=== PATIENT | female | born 1985 | race Caucasian/White ===

== ENCOUNTER 2017-05-14 08:41 | Emergency (ER) | payer OTHER ==
[~2017-05-14] VITALS: Ht 167.6 cm; Wt 97.1 kg
[2017-05-14 08:43] VITALS: BP 111/72
--- NOTE | 2017-05-14 08:48 | NUR ---
Patient ambulated to bed 11. RN evaluating patient at bedside.
--- NOTE | 2017-05-14 08:50 | NUR ---
32/F BIB FAMILY FOR MEDICATION REFILL, INSULIN. HX DM, 22 WEEKS .PT STATED SHE CHECKED BS THIS AM AT HOME = 246 MG/DL. DENIES N/V/D; SKIN IS PINK/WARM/DRY; AAOX4 WITH EVEN AND STEADY GAIT; LUNGS CLEAR BL; HR EVEN AND REGULAR; PT DENIES ANY FEVER, CP, SOB, OR COUGH AT THIS TIME; PATIENT STATES PAIN OF 0/10 AT THIS TIME; VSS; PATIENT POSITIONED FOR COMFORT; HOB ELEVATED; BEDRAILS UP X2; BED DOWN. ER MD MADE AWARE OF PT STATUS.
--- NOTE | 2017-05-14 08:52 | NUR ---
Patient being evaluated byDR GONCALVES at bedside.
[2017-05-14 09:02] VITALS: BP 119/78
--- NOTE | 2017-05-14 09:02 | NUR ---
Patient discharged with v/s stable. Written and verbal after care instructions given and explained. Patient alert, oriented and verbalized understanding of instructions. Ambulatory with steady gait. All questions addressed prior to discharge. ID band removed. Patient advised to follow up with PMD. Rx of HUMULIN R given. Patient educated on indication of medication including possible reaction and side effects. Opportunity to ask questions provided and answered.
== END 2017-05-14 09:02 | disposition home or self-care (01) ==
LOC: MED 08:41
DX: Z76.0 Encounter for issue of repeat prescription (principal); O24.912 Unspecified diabetes mellitus in pregnancy, second trimester; Z3A.22 22 weeks gestation of pregnancy
CPT/HCPCS: 99282

== ENCOUNTER 2017-07-30 07:16 | Emergency (ER) | payer OTHER ==
[~2017-07-30] VITALS: Ht 170.2 cm; Wt 98.4 kg
[2017-07-30 07:22] VITALS: BP 107/70
--- NOTE | 2017-07-30 07:31 | NUR ---
PATIENT PRESENTS TO ED FOR MEDICATION REFILL FOR INSULIN, 31 WEEKS,LMP 6.19 ;DENIES N/V/D; SKIN IS PINK/WARM/DRY; AAOX4 WITH EVEN AND STEADY GAIT; LUNGS CLEAR BL; HR EVEN AND REGULAR; PT DENIES ANY FEVER, CP, SOB, OR COUGH AT THIS TIME; PATIENT STATES PAIN OF 0/10 AT THIS TIME; VSS; PATIENT POSITIONED FOR COMFORT; HOB ELEVATED; BEDRAILS UP X2; BED DOWN. ER MD MADE AWARE OF PT STATUS.
--- NOTE | 2017-07-30 07:31 | NUR ---
PT AMBULATED TO BED 3
--- NOTE | 2017-07-30 07:32 | NUR ---
DR KEVIN EVALUATING PT.
[2017-07-30] MEDS ORDERED: INSULIN HUMAN REGULAR 100 UNITS/ML 10 ML VIAL SUBQ ONE (07:35)
[2017-07-30] MEDS ORDERED: INSULIN NPH HUMAN ISOPHANE 100 UNIT/ML VIAL SUBQ ONE (07:35)
--- NOTE | 2017-07-30 07:42 | NUR ---
FHT 136
[2017-07-30 08:13] VITALS: BP 127/72
== END 2017-07-30 08:12 | disposition home or self-care (01) ==
LOC: MED 07:16
DX: Z76.0 Encounter for issue of repeat prescription (principal); O24.313 Unspecified pre-existing diabetes mellitus in pregnancy, third trimester; E11.9 Type 2 diabetes mellitus without complications; Z3A.31 31 weeks gestation of pregnancy; Z79.4 Long term (current) use of insulin
CPT/HCPCS: 82948; 96372; 99283; J1815

== ENCOUNTER 2018-06-21 17:51 | Emergency (ER) | payer OTHER ==
[~2018-06-21] VITALS: Ht 172.7 cm; Wt 93.9 kg
[2018-06-21 17:55] VITALS: BP 120/81
--- NOTE | 2018-06-21 18:00 | NUR ---
PT AMBULATES BACK TO THE LOBBY WITH HER
--- NOTE | 2018-06-21 19:37 | NUR ---
PT AMBULATED TO BED 7
--- NOTE | 2018-06-21 19:54 | NUR ---
PT PRESENTS TO ED WITH C/O RASHES TO BILATERAL ARMS AND LEGS AND STOMACH X 4 DAYS WITH SUDDEN ONSET. PT DENIES ANY NEW FOODS OR PRODUCTS USED. PT DENIES CP/SOB AT THIS TIME. RED RASIED BUMPS NOTED TO BILAT ARMS/LEGS AND LOWER STOMACH. NO DRAINGAGE NOTED. PT PLACED INTO BED, PENDING MD MOHAMUD. PMH--DM RX--METFORMIN
[2018-06-21] MEDS ORDERED: FAMOTIDINE 20 MG TAB PO ONE (19:55)
[2018-06-21] MEDS ORDERED: diphenhydrAMINE 50 MG/ML VIAL IM ONE (19:55)
[2018-06-21] MEDS ORDERED: ALBUTEROL SULFATE/IPRATROPIU 3 ML SOL IH ONE (19:55)
[2018-06-21 20:40] VITALS: BP 122/77
--- NOTE | 2018-06-21 20:40 | NUR ---
Patient discharged with v/s stable. Written and verbal after care instructions given and explained. Patient alert, oriented and verbalized understanding of instructions. Ambulatory with steady gait. All questions addressed prior to discharge. ID band removed. Patient advised to follow up with PMD. Rx of diphenhydramine 25mg given. Patient educated on indication of medication including possible reaction and side effects. Opportunity to ask questions provided and answered.
== END 2018-06-21 20:40 | disposition home or self-care (01) ==
LOC: MED 17:51
DX: L23.9 Allergic contact dermatitis, unspecified cause (principal); E11.9 Type 2 diabetes mellitus without complications; R06.02 Shortness of breath; Z98.890 Other specified postprocedural states
CPT/HCPCS: 96372; 99283; J1200; J7620

== ENCOUNTER 2018-06-26 15:04 | Emergency (ER) | payer OTHER ==
[~2018-06-26] VITALS: Ht 172.7 cm; Wt 93.9 kg
[2018-06-26 15:11] VITALS: BP 119/75
--- NOTE | 2018-06-26 15:14 | NUR ---
PT AMBULATES TO BED 10
--- NOTE | 2018-06-26 15:20 | NUR ---
33F BIB SELF WITH C/O INTERMITTENT R HAND NUMNBESS, 10/10 GENERALIZED ABD PAIN AND N/V X 4 DAYS. PATIENT STS SHE IS UNSURE IF SHE IS . PULSE +2 AND CAP REFILL <3 SECS TO RIGHT HAND. PT IS AOX4 TO PERSON, TIME, SITUATION. RR ARE EVEN AND UNLABORED. ABD SOFT AND NON TENDER. NAD. VSS. AWAITING ER MD MOHAMUD. WILL CONTINUE TO MONITOR.
[2018-06-26] MEDS ORDERED: LACTATED RINGERS 1,000 ML IV ONE (16:00)
[2018-06-26] MEDS ORDERED: ONDANSETRON 4 MG/2 ML VIAL IVP ONE (16:00)
--- NOTE | 2018-06-26 16:44 | NUR ---
PT MOVED TO BED 11
[2018-06-26 16:46] LABS: BASOPHILS % (AUTO) 0.2 % (0.0-2.0); EOSINOPHILS # (AUTO) 0.2 K/uL (0-0.4); EOSINOPHILS % (AUTO) 1.7 % (0.0-4.0); HEMOGLOBIN 13.5 g/dL (12.0-16.0); LYMPHOCYTES # (AUTO) 1.7 K/uL (2.5-16.5); LYMPHOCYTES % (AUTO) 17.5 % (20.5-51.1); MEAN CORPUSCULAR HEMOGLOBIN 29 pg (27-31); MEAN CORPUSCULAR HGB CONC 33 g/dL (33-37); MEAN CORPUSCULAR VOLUME 88.3 fL (80-94); MONOCYTES # (AUTO) 0.5 K/uL (0.8-1.0); MONOCYTES % (AUTO) 4.7 % (1.7-9.3); NEUTROPHILS # (AUTO) 7.4 K/uL (1.8-7.7); NEUTROPHILS % (AUTO) 75.9 % (42.2-75.2); PLATELET COUNT (AUTO) 294 K/uL (140-450); RED BLOOD CELL COUNT(AUTO) 4.65 MIL/uL (4.20-5.40); RED CELL DISTRIBUTION WIDTH 13.4 % (11.6-13.7); WHITE BLOOD COUNT (AUTO) 9.7 K/uL (4.8-10.8)
[2018-06-26 17:01] LABS: APPEARANCE,URINE CLEAR (CLEAR); BILIRUBIN,URINE NEGATIVE (NEGATIVE); BLOOD, URINE NEGATIVE (NEGATIVE); COLOR,URINE YELLOW (YELLOW); LEUKOCYTE ESTERASE ,URINE NEGATIVE (NEGATIVE); NITRITE, URINE NEGATIVE (NEGATIVE); PH,URINE 6.5 (5.0-9.0); UGLUCOSE NEGATIVE (NEGATIVE)
[2018-06-26 18:27] VITALS: BP 116/72
--- NOTE | 2018-06-26 18:29 | NUR ---
Patient discharged with v/s stable. Written and verbal after care instructions given and explained. Patient alert, oriented and verbalized understanding of instructions. Ambulatory with steady gait. All questions addressed prior to discharge. ID band removed. Patient advised to follow up with PMD. Rx of CITRACAL , ZOFRAN given. Patient educated on indication of medication including possible reaction and side effects. Opportunity to ask questions provided and answered.
== END 2018-06-26 18:29 | disposition home or self-care (01) ==
LOC: MED 15:04
DX: O21.0 Mild hyperemesis gravidarum (principal); O26.891 Other specified pregnancy related conditions, first trimester; O24.911 Unspecified diabetes mellitus in pregnancy, first trimester; R10.9 Unspecified abdominal pain; J03.90 Acute tonsillitis, unspecified; R20.2 Paresthesia of skin; R19.7 Diarrhea, unspecified; Z3A.09 9 weeks gestation of pregnancy; Z98.890 Other specified postprocedural states
CPT/HCPCS: 36415; 76815; 81003; 81025; 84702; 85025; 86900; 86901; 96361; 96374; 99284; J2405; J7120; Q0092

== ENCOUNTER 2018-11-01 20:33 | Emergency (ER) | payer OTHER ==
[~2018-11-01] VITALS: Ht 157.5 cm; Wt 91.2 kg
--- NOTE | 2018-11-01 20:35 | NUR ---
PT WAS SENT TO OB DUE TO HOSPITAL POLICY OVER 20 WEEKS/5 MONTHS . GAVE OB RN REPORT ON PT. WAS WHEELCHAIRED OVER BY EMT TO LABOR/DELIVORY FOR FURTHER EXAMINATION. ANAD MADE AWARE OF STATUS.
--- NOTE | 2018-11-01 20:58 | NUR ---
PT WAS BROUGHT BACK FROM L &D BY WHEEL CHAIR. EMT STATED THAT RN DID FHT AND IS WAS 153 HR, AND SAID PT WAS CLEAR FROM OB PER OB RN. ER MD MADE AWARE OF STATUS.
[2018-11-01 21:06] VITALS: BP 103/58
--- NOTE | 2018-11-01 21:06 | NUR ---
PT AMBULATED TO BED #1
--- NOTE | 2018-11-01 21:19 | NUR ---
Dr. Jaquez evaluating patient at bedside.
[2018-11-01 21:36] VITALS: BP 103/58
--- NOTE | 2018-11-01 21:36 | NUR ---
Patient discharged with v/s stable. Written and verbal after care instructions given and explained. Patient alert, oriented and verbalized understanding of instructions. Ambulatory with steady gait. All questions addressed prior to discharge. ID band removed. Patient advised to follow up with PMD. Rx of BENADRYL , HYDROCORTISONE 1% OINTMENT given. Patient educated on indication of medication including possible reaction and side effects. Opportunity to ask questions provided and answered.
== END 2018-11-01 21:36 | disposition home or self-care (01) ==
LOC: MED 20:33 → EDSTATUS 20:49 → MED 21:36
DX: O26.892 Other specified pregnancy related conditions, second trimester (principal); L25.9 Unspecified contact dermatitis, unspecified cause; E11.9 Type 2 diabetes mellitus without complications; Z3A.20 20 weeks gestation of pregnancy
CPT/HCPCS: 99283

== ENCOUNTER 2022-04-01 18:10 | Emergency (ER) | payer OTHER ==
[~2022-04-01] VITALS: Ht 165.1 cm; Wt 82.1 kg
[2022-04-01 19:42] VITALS: BP 138/90
--- NOTE | 2022-04-01 19:49 | NUR ---
PT TO LOBBY
[2022-04-01] MEDS ORDERED: MICO45CR20 VG (20:47)
[2022-04-01 21:18] LABS: BASOPHILS # (AUTO) 0.1 K/uL (0.00-0.22); BASOPHILS % (AUTO) 0.7 % (0.0-2.0); EOSINOPHILS # (AUTO) 0.1 K/uL (0-0.4); EOSINOPHILS % (AUTO) 0.8 % (0.0-4.0); HEMATOCRIT 40.6 % (36-48); HEMOGLOBIN 13.9 g/dL (12.0-16.0); LYMPHOCYTES # (AUTO) 3.5 K/uL (2.5-16.5); LYMPHOCYTES % (AUTO) 31.2 % (20.5-51.1); MEAN CORPUSCULAR HEMOGLOBIN 30 pg (27-31); MEAN CORPUSCULAR HGB CONC 34 g/dL (33-37); MEAN CORPUSCULAR VOLUME 87.3 fL (80-94); MONOCYTES # (AUTO) 0.6 K/uL (0.8-1.0); MONOCYTES % (AUTO) 5.4 % (1.7-9.3); NEUTROPHILS # (AUTO) 6.9 K/uL (1.8-7.7); NEUTROPHILS % (AUTO) 61.9 % (42.2-75.2); PLATELET COUNT (AUTO) 292 K/uL (140-450); RED BLOOD CELL COUNT(AUTO) 4.65 MIL/uL (4.20-5.40); RED CELL DISTRIBUTION WIDTH 13.2 % (11.6-13.7); WHITE BLOOD COUNT (AUTO) 11.2 K/uL (4.8-10.8)
[2022-04-01 21:22] LABS: APPEARANCE,URINE CLEAR (CLEAR); BILIRUBIN,URINE NEGATIVE (NEGATIVE); BLOOD, URINE NEGATIVE (NEGATIVE); COLOR,URINE YELLOW (YELLOW); LEUKOCYTE ESTERASE ,URINE TRACE (NEGATIVE); NITRITE, URINE NEGATIVE (NEGATIVE); UGLUCOSE 2+ (NEGATIVE)
[2022-04-01 21:42] LABS: OTHER CASTS, URINE None Seen /LPF (None Seen); YEAST,URINE Few /HPF (None Seen)
[2022-04-01] MEDS ORDERED: CEPH500C16 PO (22:34)
--- NOTE | 2022-04-01 23:33 | NUR ---
Patient discharged with v/s stable. Written and verbal after care instructions given and explained. Patient alert, oriented and verbalized understanding of instructions. Ambulatory with steady gait. All questions addressed prior to discharge. ID band removed. Patient advised to follow up with PMD. Rx of MONISTAT AND KEFLEX given. Patient educated on indication of medication including possible reaction and side effects. Opportunity to ask questions provided and answered.
--- NOTE | 2022-04-04 20:36 | NUR ---
LATE ENTRY. RECEIVED POSITIVE URINE CULTURE, FORM GIVEN TO DR AHN. TREATMENT APPROPRIATE. FORM PLACED IN BINDER
== END 2022-04-01 23:33 | disposition home or self-care (01) ==
LOC: MED 18:10
DX: O98.811 Other maternal infectious and parasitic diseases complicating pregnancy, first trimester (principal); B37.9 Candidiasis, unspecified; Z3A.01 Less than 8 weeks gestation of pregnancy
CPT/HCPCS: 36415; 76801; 81001; 81025; 84702; 85025; 86900; 86901; 87086; 87186; 99284; Q0092